=== PATIENT | female | born 1950 | race Caucasian/White ===

== ENCOUNTER → 2025-02-06 | Outpatient (CLI) | payer MEDICARE ==
[~2025-02-06] MED LIST: IOHEXOL 350 MG/ML 100ML INFUS..BTL IV ONE
--- NOTE | 2025-02-07 09:25 | HMCIMG ---
EXAM: CTA Abdomen with and without Intravenous Contrast. CLINICAL HISTORY: Cyst of kidney, acquired TECHNIQUE: Axial CTA images of the abdomen performed with and without intravenous contrast in the arterial phase with coronal and sagittal reformatted images generated and reviewed. 3-D reformatted images generated on an independent workstation and also reviewed. COMPARISON: None provided. FINDINGS: VASCULATURE: Aorta: Atherosclerotic intimal wall calcifications involving the abdominal aorta and its branches. No evidence of aneurysm, dissection, occlusion, or hemodynamically significant stenosis. Celiac trunk: No acute finding. No occlusion or significant stenosis. Superior mesenteric artery: No acute finding. No occlusion or significant stenosis. Inferior mesenteric artery: No acute finding. No occlusion or significant stenosis. Renal arteries: No acute finding. No occlusion or significant stenosis. Lower thorax: No basilar airspace consolidation. ABDOMEN: Liver: Subcapsular enhancing focus measuring 0.9 x 0.7 cm in segment 8. Subcentimeter calcified granulomas in the right lobe. Gallbladder and bile ducts: Unremarkable. No stones or dilation. Pancreas: Unremarkable. No mass or ductal dilation. Spleen: Subcentimeter calcified focus in the superior pole, consistent with prior granuloma. Adrenals: Unremarkable. No mass. Kidneys and ureters: Left kidney:Subcentimeter cortical cyst in the interpolar region of the left external pelvis. Right kidney: Well-defined hypodense exophytic cyst measuring 7.5 x 7.6 x 7.9 cm (AP, transverse, craniocaudal) involving the lower pole and interpolar region. No internal septations, solid components, or enhancement to suggest complexity. Bilateral extrarenal pelvis Stomach and bowel: Hiatal hernia. No obstruction or wall thickening. Colonic diverticulosis with no evidence of acute diverticulitis. Normal appendix. Peritoneum: Umbilical hernia measuring 0.6 cm containing omental fat. No free fluid or free air. Lymph nodes: No lymphadenopathy. Bones and soft tissues: Mild to moderate lumbar spondylosis with grade 1 anterolisthesis of L4 over L5. Well-defined fat-density lipoma measuring 3.2 x 4.9 cm in the intramuscular plane of the anterior compartment of the proximal right thigh. PELVIS: Multiple intramural calcified foci in the uterus, largest measuring 2 x 1.5 cm in the posterior myometrial wall, consistent with calcified intramural fibroids. No acute abnormality. IMPRESSION: No acute intra-abdominal or pelvic pathology. Bilateral cortical renal cysts. Bosniak category 1. No suspicious renal lesions. Enhancing subcapsular liver lesion (0.9 cm) in segment 8. Suggested MRI abdomen triple phase study for further characterization. No urinary calculi. No hydronephrosis. No bowel obstruction or inflammation. Diverticulosis. Normal appendix. Calcified uterine fibroids. Suggested MRI pelvis, if clinically indicated Small hiatal and umbilical hernias. Atherosclerotic calcifications in abdominal aorta and branches, without acute vascular compromise. 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 /Nixon
== END | disposition home or self-care (01) ==
LOC: RAH 09:01
PROVIDERS: ATTEND Student in an Organized Health Care Education/Training Program
DX: N28.1 Cyst of kidney, acquired (principal); K57.30 Diverticulosis of large intestine without perforation or abscess without bleeding; D25.9 Leiomyoma of uterus, unspecified; K44.9 Diaphragmatic hernia without obstruction or gangrene; K42.9 Umbilical hernia without obstruction or gangrene; I70.0 Atherosclerosis of aorta; J98.4 Other disorders of lung
CPT/HCPCS: 74174; Q9967